=== PATIENT | female | born 1975 | race Caucasian/White ===

== ENCOUNTER 2021-04-24 22:01 | Emergency (ER) | payer BC ==
--- NOTE | 2021-04-24 22:23 | EDM.PDOC ---
ED HPI GENERAL MEDICAL PROBLEM - General Stated Complaint: NOSE BLEED WONT QUIT Time Seen by Provider: 04/24/21 22:10 Source of Information: Reports: Patient History Limitations: Reports: No Limitations - History of Present Illness INITIAL COMMENTS - FREE TEXT/NARRATIVE: Patient presented to the ED because of rt sided epistaxis which started tonight. She tried to apply pressure but it didn't quit bleeding. - Related Data Allergies Allergy/AdvReac Type Severity Reaction Status Date / Time No Known Allergies Allergy Verified 01/07/19 15:14 ED ROS ENT - Review of Systems Review Of Systems: See Below Constitutional: Reports: No Symptoms HEENT: Reports: Nosebleed Respiratory: Reports: No Symptoms Cardiovascular: Reports: No Symptoms Endocrine: Reports: No Symptoms GI/Abdominal: Reports: No Symptoms : Reports: No Symptoms Musculoskeletal: Reports: No Symptoms Skin: Reports: No Symptoms Neurological: Reports: No Symptoms Psychiatric: Reports: No Symptoms Hematologic/Lymphatic: Reports: No Symptoms ED EXAM, ENT - Physical Exam Exam: See Below Exam Limited By: No Limitations General Appearance: Alert, No Apparent Distress Ears: Normal External Exam, Normal Canal, Hearing Grossly Normal Nose: Normal Inspection, Nasal Swelling, Dried Blood Mouth/Throat: Normal Inspection, Normal Gums, Normal Lips, Normal Oropharynx, Normal Teeth Head: Atraumatic, Normocephalic Neck: Normal Inspection, Supple, Non-Tender, Full Range of Motion Respiratory/Chest: No Respiratory Distress, Lungs Clear, Normal Breath Sounds, No Accessory Muscle Use, Chest Non-Tender Cardiovascular: Normal Peripheral Pulses, Regular Rate, Rhythm, No Edema GI/Abdominal: Normal Bowel Sounds, Soft, Non-Tender, No Organomegaly Back: Normal Inspection, Full Range of Motion Course - Vital Signs Text/Narrative:: A rhinopack was applied but didn't fit in her nose because her nose is small. A cotton ball soaked in lidocaine with epi was applied and bleeding stopped. Last Recorded V/S: Last Vital Signs Temp 36.4 C 04/24/21 22:10 Pulse 65 04/24/21 22:10 Resp 20 04/24/21 22:10 BP 136/78 04/24/21 22:10 Pulse Ox 96 04/24/21 22:10 Departure - Departure Time of Disposition: 21:25 Disposition: Home, Self-Care 01 Condition: Good Clinical Impression: Epistaxis - Discharge Information Instructions: Nosebleed, Adult, [id number] Referrals: Suzanne Beverly PA [Primary Care Provider] - Forms: ED Department Discharge Additional Instructions: Please read discharge instructions on nasal bleed Remove the nasal pack after 24 hours Do not take aspirin, aleve, ibuprofen,diclofenac, voltaren, prednisone for 1 week Tylenol 1000 mg every 8 hours as needed for pain Follow up with ENT if your nose bleed is becoming more frequent Sepsis Event Note (ED) - Focused Exam Vital Signs: Vital Signs Temp Pulse Resp BP Pulse Ox 04/24/21 22:10 36.4 C 65 20 136/78 96
== END 2021-04-24 23:10 | disposition home or self-care (01) ==
LOC: FB.ED 22:01
DX: R04.0 Epistaxis (principal)
CPT/HCPCS: 99283

== ENCOUNTER 2022-04-23 21:07 | Emergency (ER) | payer BC ==
[2022-04-23] MEDS: Aspirin 325 MG Tab.EC PO ONE (21:27)
[2022-04-23 22:17] LABS: ESTIMATED GFR 78 mL/min (>60)
== END 2022-04-23 23:20 | disposition home or self-care (01) ==
LOC: FB.ED 21:07
DX: R00.2 Palpitations (principal); F41.9 Anxiety disorder, unspecified; I10 Essential (primary) hypertension; Z20.822 Contact with and (suspected) exposure to COVID-19
CPT/HCPCS: 36415; 71045; 80053; 83880; 84484; 85025; 87635; 93005; 99285; A9270; U0002